=== PATIENT | male | born 1950 | race Hispanic/Latino ===

== ENCOUNTER 2016-08-06 15:18 | Emergency (ER) | payer MEDICARE, OTHER ==
[2016-08-06 15:31] VITALS: BP 159/89; PULSE 87; RESP 18; TEMP 97.8; O2SAT 96
--- NOTE | 2016-08-06 15:50 | ED PDOC ---
HPI: Skin/Bite Injury Time Seen by Provider: 08/06/16 15:28 Chief Complaint (Nursing): Abnormal Skin Integrity Chief Complaint (Provider): Abscess - Middle back History Per: Patient History/Exam Limitations: no limitations Onset/Duration Of Symptoms: Days Current Symptoms Are (Timing): Still Present Quality Of Symptoms: Painful Severity: Mild Pain Scale Rating Of: 3 Additional Complaint(s): Pt states he began clindamycin approx 2 days ago. PT states he has not been doing warm compresses. Pt states it has been there a long time but only became "infected" a few days ago. Pt denies fever/chills. Past Medical History Reviewed: Historical Data, Nursing Documentation, Vital Signs Vital Signs: Last Vital Signs Temp 97.8 F 08/06/16 15:27 Pulse 87 08/06/16 15:27 Resp 18 08/06/16 15:27 BP 159/89 H 08/06/16 15:27 Pulse Ox 96 08/06/16 15:27 - Medical History PMH: HTN - Surgical History Surgical History: No Surg Hx - Family History Family History: States: No Known Family Hx - Living Arrangements Living Arrangements: Other - Home Medications Home Medications: Ambulatory Orders Medication Instructions Recorded No Known Home Med 10/10/15 - Allergies Allergies/Adverse Reactions: Allergies Allergy/AdvReac Type Severity Reaction Status Date / Time No Known Allergies Allergy Verified 10/10/15 07:40 Review of Systems ROS Statement: Except As Marked, All Systems Reviewed And Found Negative Skin: Positive for: Other Physical Exam - Reviewed Nursing Documentation Reviewed: Yes Vital Signs Reviewed: Yes - Physical Exam Appears: Positive for: Well, Non-toxic, No Acute Distress Head Exam: Positive for: ATRAUMATIC, NORMAL INSPECTION, NORMOCEPHALIC Skin: Positive for: Warm. Negative for: Normal Color ((+) indurated abscess on the left upper back, localized erythema only directly over abscess ) Eye Exam: Positive for: Normal appearance ENT: Positive for: Normal ENT Inspection Neck: Positive for: Normal, Painless ROM Respiratory: Negative for: Accessory Muscle Use, Respiratory Distress Back: Positive for: Normal Inspection Extremity: Positive for: Normal ROM Neurologic/Psych: Positive for: Alert, Oriented - ECG O2 Sat by Pulse Oximetry: 96 Disposition - Clinical Impression Clinical Impression: Abscess - Patient ED Disposition Is Patient to be Admitted: No Counseled Patient/Family Regarding: Diagnosis, Need For Followup - Disposition Referrals: Fitz Covarrubias MD [Staff Provider] - Disposition: Routine/Home Disposition Time: 15:49 Condition: GOOD Additional Instructions: Follow-up for incision and drainage of area when center becomes soft. Warm compresses every few hours, or warm shower/bath. Return sooner for worsening redness, pain or fever. Instructions: Abscess (ED)
== END 2016-08-06 16:05 | disposition home or self-care (01) ==
LOC: H.ER 15:18
DX: L02.212 Cutaneous abscess of back [any part, except buttock and flank] (principal); I10 Essential (primary) hypertension